=== PATIENT | male | born 1955 | race Caucasian/White ===

== ENCOUNTER 2020-01-08 01:41 | Emergency (ER) | payer OTHER ==
[~2020-01-08] VITALS: Ht 165.1 cm; Wt 70.3 kg
[2020-01-08 01:44] VITALS: BP 143/91; Ht 165.1 cm; Wt 70.3 kg
== END 2020-01-08 02:03 | disposition other institution (70) ==
LOC: ED 01:41
DX: Z02.89 Encounter for other administrative examinations (principal)